=== PATIENT | female | born 1970 | race Hispanic/Latino ===

== ENCOUNTER 2019-11-09 03:05 | Observation (INO) | payer BC ==
[~2019-11-09] VITALS: Ht 157.5 cm; Wt 65.2 kg
[2019-11-09] MEDS ORDERED: METOPROLOL SUCC25 MG PO (03:22)
[2019-11-09] MEDS ORDERED: HYDROCHLOROTHIA25 MG PO (03:22)
--- NOTE | 2019-11-09 13:02 | CONS ---
[facility] [address] [place], [place] [address] Signed DATE OF CONSULTATION: 11/09/2019 REFERRING PHYSICIAN: Anitha Arreaga MD CHIEF COMPLAINT: Right upper quadrant abdominal pain. HISTORY OF PRESENT ILLNESS: Lenore is a 48-year-old female, who was at [facility] in June 2019. Her abdominal ultrasound showed cholelithiasis with sludge, but no evidence of any acute cholecystitis. However, she has been having attacks particularly last month or two at least once or twice a week. The last couple of days had been terrible. She is having significant right upper quadrant abdominal pain with nausea, vomiting, and anorexia. Her recognized this as her gallbladder disease. He had his gallbladder out laparoscopically within the last year over at [facility]. In the emergency room, she was tender in the right upper quadrant with unremarkable liver function test. However, the white count was up at 14.5. Beta-hCG is negative. Lipase negative. The ultrasound was obtained from [facility]. She was given Rocephin and Flagyl and her potassium was low because of hydrochlorothiazide. She was given some potassium IV as well. I was asked to admit her as a general surgeon on-call. Overall, she has improved with narcotic pain medication, but is still having pain in the right upper quadrant with nausea and vomiting. PAST MEDICAL HISTORY: Hypertension. PAST SURGICAL HISTORY: x2. SOCIAL HISTORY: She does not smoke or drink. She is to Justin Rivera at [phone]. They have two children. 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 She attends the [employer]. FAMILY HISTORY: Hypertension. REVIEW OF SYSTEMS: She had 10 systems reviewed with the help of her and she is doing fine except for the gallbladder issues. ALLERGIES: None. Electronically Signed By: SANDRA TONEY MD 11/09/19 0322 PATIENT NAME: LENORE ANTOINE CONSULTATION DATE OF : 74 REPORT #: [id number] PHYSICIAN: SANDRA TONEY MD PCP: OTHER PCP REPORT IS CONFIDENTIAL AND NOT TO BE RELEASED WITHOUT AUTHORIZATION [facility] [address] [place] [address] Signed MEDICATIONS: 1. Metoprolol extended release 25 mg p.o. daily. 2. Hydrochlorothiazide 25 mg p.o. daily. PHYSICAL EXAMINATION: VITAL SIGNS: Her blood pressure is 128/81, heart rate 92, respiratory rate 18, temperature is 97.3. She is 100% on room air. She is 5 feet 2 inches, 65 kg. GENERAL: Lenore is a 48-year-old female, lying supine semi-recumbent in her hospital bed. Her is in the room. She is obviously uncomfortable and nauseated and has the vomit bag in her hand. LUNGS: Clear to auscultation bilaterally. HEART: Regular rate and rhythm. ABDOMEN: Soft and flat, but she is tender in the right upper quadrant. LABORATORY DATA: Her white blood cell count is 14.5, neutrophils 87. BUN 11, creatinine 0.63. Urinalysis unremarkable. Total bilirubin 1.0, AST 16, ALT 22, alkaline phosphatase 75, albumin is 4.6, lipase 18. Beta-hCG negative. RADIOGRAPHIC STUDIES: The ultrasound from June 2019 from [facility] has been reviewed showing the cholelithiasis and sludge, but an unremarkable common bile duct. ASSESSMENT/PLAN: Lenore is a 48-year-old female, who has acute cholecystitis and cholelithiasis. She has been admitted given her IV fluids and antibiotics along with pain control. Her potassium is being corrected IV. I brought brochure today for Lenore and her . One is written in Hong Konger, one is written in Swedish. We went it through a page by page. They both read Hong Konger quite well. He helped to interpret obviously which worked out very well. She understands the location and function of the gallbladder. She understands the gallstones. She understands 20% of every one in [place] and [place] has gallstones. 20% of that group will end up having symptoms needing surgery. In that group of surgical patients, 3-7% of those patients will have stones in the main bile duct. Consequently, we like to do an intraoperative cholangiogram for our patients. This is successful 90% of the time. If she would need an ERCP, this would be done outside her institution that requires advance training. We reviewed expected intraop and postop course. Her just had her gallbladder out within the last year and he is very familiar with all of this. There is risk including, but not limited to bleeding, infection, scarring, change in contour of the skin, damage to bowel, damage to main bile duct, incisional hernias and other unforeseen comorbidities. They have expressed understanding and would like to proceed. Electronically Signed By: SANDRA TONEY MD 11/09/19 1302 PATIENT NAME: LENORE ANTOINE CONSULTATION DATE OF : 74 REPORT #: [id number] PHYSICIAN: SANDRA TONEY MD PCP: OTHER PCP REPORT IS CONFIDENTIAL AND NOT TO BE RELEASED WITHOUT AUTHORIZATION [facility] [address] [place], [place] [address] Signed Sandra Toney MD ALB/MODL /[id number] cc: Sandra Toney MD [facility] Copies: SANDRA TONEY MD ~ Electronically Signed By: SANDRA TONEY MD 11/09/19 1302 PATIENT NAME: LENORE ANTOINE CONSULTATION DATE OF : 74 REPORT #: [id number] PHYSICIAN: SANDRA TONEY MD PCP: OTHER PCP REPORT IS CONFIDENTIAL AND NOT TO BE RELEASED WITHOUT AUTHORIZATION
--- NOTE | 2019-11-09 23:03 | EKG ---
[facility] [address] [facility] [place], [place] [address] Signed Sinus tachycardia Otherwise normal ECG No previous ECGs available Confirmed by TRAVIS ARROYO DO ([id number]) on 11/09/2019 11:03:03 PM Electronically Signed By: TRAVIS ARROYO DO 11/09/19 2303 PATIENT NAME: MOIRA ANTOINE Electrocardiogram DATE OF : 74 PHYSICIAN: TRAVIS ARROYO DO REPORT #: [id number] REPORT IS CONFIDENTIAL AND NOT TO BE RELEASED WITHOUT AUTHORIZATION
--- NOTE | 2019-11-10 07:41 | OR ---
[facility] [address] [place], [place] [address] Signed DATE OF OPERATION: SURGEON: Sandra Venegas MD PREOPERATIVE DIAGNOSES: Acute on chronic cholecystitis and cholelithiasis. POSTOPERATIVE DIAGNOSES: Severe acute on chronic cholecystitis and cholelithiasis. PROCEDURES: 1. Laparoscopic cholecystectomy with intraoperative cholangiogram. 2. Subhepatic drain placement. ESTIMATED BLOOD LOSS: None. FINDINGS: Lenore had severe inflammation and edema of her gallbladder wall. The gallbladder was extremely tense and had to be opened and drained in order to grasp the gallbladder to elevate it into the right upper quadrant. She had copious amounts of sludge and stones in the gallbladder. We placed our intraoperative cholangiocatheter into the cystic duct. We could not get the contrast to flow down into the common bile duct. We did not see any obvious filling defects in her cystic duct. We did milk that back and washed it out copiously with saline with what we felt was good results. We then secured cystic duct stump with a PDS Endoloop and 2 clips were used to angie its location. INDICATIONS: Lenore is a 48-year-old speaking female, who has had quite a bit of trouble in the last few months with right upper quadrant abdominal pain, nausea and vomiting. She had been to [facility] in June 2019. Her ultrasound showed the multiple gallstones, but the common bile duct was unremarkable and the gallbladder wall was not thickened. There was no pericholecystic fluid. She had been allowed to be discharged to home. In the meantime, the episodes of right upper quadrant abdominal pain with nausea, vomiting had becoming more frequent, more severe and it was quite significant yesterday, so her brought her to our local emergency room for evaluation. She was tender in the right upper quadrant. White count was elevated, but the liver function tests were fine. Beta-hCG was negative and lipase was negative. I was asked to admit her as a general surgeon on-call overnight. She does take hydrochlorothiazide. Her potassium was low. Consequently, she received 40 mEq of potassium overnight. She also received Rocephin and Flagyl. This morning, she is Electronically Signed By: SANDRA VENEGAS MD 11/10/19 0741 PATIENT NAME: LENORE ANTOINE OPERATIVE REPORT DATE OF : 74 REPORT #: [id number] PHYSICIAN: SANDRA VENEGAS MD PCP: OTHER PCP REPORT IS CONFIDENTIAL AND NOT TO BE RELEASED WITHOUT AUTHORIZATION [facility] [address] [place] [address] Signed generally about the same, but the pain is controlled with her Dilaudid. I brought brochure that was written in Cambodian and Kenyan, so that she and her both could have those. They both read Cambodian quite well. We went through the brochure page by page and I explained to Lenore the location of function of the gallbladder, we discussed laparoscopic versus open cholecystectomy. We also reviewed the expected intraop and postop course. They understand that 20% of people in [place] and [place] have gallstones. 20% of that group ends up having symptoms and needs the gallbladder out and in that group 3-7% will have a stone in the distal common bile duct requiring an ERCP. I reviewed ERCP with them in a brochure as well. There is risk to that surgery including, but not limited to bleeding, infection, scarring, change in contour of the skin, damage to bowel, damage to main bile duct, and incisional hernias. They had expressed understanding and wished to proceed. PROCEDURE NOTE: Lenore was taken into the operating room and placed in the supine position under general endotracheal tube anesthesia. She was on preoperative Rocephin and Flagyl. She was given preoperative heparin. SCDs were utilized. She was then prepped and draped in the usual sterile fashion. We could not specifically palpate the gallbladder. All trocars were placed in usual positions under direct visualization of camera without difficulty. We were unable to grasp the gallbladder because it was quite tense. We made a small hole near the top of the gallbladder, we suctioned out copious amounts of fluid and sludge. We then grasped the gallbladder and elevated in the right upper quadrant. We dissected out the triangle of Calot, placed a clip across the cystic artery and it was divided. We inserted the cholangiocatheter into the cystic duct without any difficulty whatsoever. We were getting some saline back, so we washed out the cystic duct and then we milked it back. We felt it was clear. We then put the intraoperative cholangiogram catheter back into place. We injected some contrast and it looks like we filled up cystic duct, but none was flowing into the common duct itself. Once again, we rinsed out the cystic duct, milked that back and then we secured the cystic duct stump with a PDS Endoloop along with two clips to angie its location. We then removed the gallbladder from the gallbladder fossa very slow and carefully with the help of the cautery. The gallbladder was then placed into an EndoCatch bag. We irrigated and suctioned out the right upper quadrant until clear. We used a #10 flat Justin drain and we brought that in the abdomen, placed in the subhepatic space and brought it out through the right most lateral 5 mm subcostal trocar site. It was held in place with 2-0 nylon at the level of the skin. We used our laparoscopic suturing device to pass 0 Vicryl suture on either side of the fascia of the subxiphoid trocar site. This was tied down to close this fascia primarily. After this, all the gas was allowed to escape and all the trocars were removed. We closed the fascia of the supraumbilical trocar site with interrupted simple and [id number]-kp-[id number] 0 Vicryl sutures. We had looked down in the pelvis with the camera and we could see she has some omentum adhered to her previous lower midline incision from her C-sections. However, the uterus Electronically Signed By: SANDRA VENEGAS MD 11/10/19 0741 PATIENT NAME: LENORE ANTOINE OPERATIVE REPORT DATE OF : 74 REPORT #: [id number] PHYSICIAN: SANDRA VENEGAS MD PCP: OTHER PCP REPORT IS CONFIDENTIAL AND NOT TO BE RELEASED WITHOUT AUTHORIZATION [facility] [address] [place] [address] Signed is down deep in the pelvis. We then injected local anesthetic and all the trocar sites. Each trocar site was irrigated and suctioned out until clear. The skin and dermis of each trocar site were closed with interrupted 3-0 subcuticular Monocryl sutures. Dry gauze and tape were applied to all incisions. Lenore was awakened from anesthesia, extubated in the OR, and taken to the recovery room in stable condition. Sandra Venegas MD ALB/MODL /[id number] cc: [facility] Sandra Venegas MD Copies: SANDRA VENEGAS MD ~ Electronically Signed By: SANDRA VENEGAS MD 11/10/19 0741 PATIENT NAME: LENORE ANTOINE OPERATIVE REPORT DATE OF : 74 REPORT #: [id number] PHYSICIAN: SANDRA VENEGAS MD PCP: OTHER PCP REPORT IS CONFIDENTIAL AND NOT TO BE RELEASED WITHOUT AUTHORIZATION
[2019-11-10] MEDS ORDERED: KLOR-CON 1010 MEQ PO (14:49)
[2019-11-10] MEDS ORDERED: NORCO 5-325 TA1 EACH PO (14:50)
--- NOTE | 2019-11-11 06:46 | DS ---
[facility] [address] [place], [place] [address] Signed ADMISSION DATE: 11/09/2019 DISCHARGE DATE: 11/10/2019 FINAL DIAGNOSES: 1. Severe [id number] cholecystitis, cholelithiasis. 2. Hypokalemia associated with hydrochlorothiazide. PROCEDURE: Laparoscopic cholecystectomy with intraoperative cholangiogram. HISTORY OF PRESENT ILLNESS: Lenore is a 48-year-old speaking female, who in June 2012 was found to have cholelithiasis at [facility]. This was based on ultrasound findings. She has been having increasing episodes of right upper quadrant abdominal pain and nausea and vomiting. The last couple of days were quite miserable. Her therefore brought her to our local emergency room here at [facility] in [place], [place]. She was clearly tender in the right upper quadrant with an elevated white blood cell count of 14.5. Liver function tests were fine and negative beta hCG. We did not repeat the ultrasound. I admitted her as a general surgeon on-call. HOSPITAL COURSE: Lenore was admitted as above for IV fluids and started on Rocephin and Flagyl. We found that she is hypokalemic associated with her hydrochlorothiazide. We actually replaced it several times and it actually went down. We took her to the operating room later that same day for laparoscopic cholecystectomy with intraoperative cholangiogram. We did place a subhepatic drain. She had significant severe inflammatory changes. We could easily see contrast in the cystic duct, but it never made into the common bile duct. There were no filling defects in the cystic duct. We washed that out with saline and milked that back and we felt good about that. It was secured with a PDS Endoloop and 2 clips to angie its location. We kept her overnight. This morning, she has very thin minimal serosanguineous fluid in her drain. We left her on Rocephin and Flagyl overnight. Her temperature and heart rate have been coming down. Her white count came down nicely from 14.5 down to 9.8. Liver function tests are still unremarkable. Potassium still low at 2.8. She has already received some potassium this morning and we are going to write for potassium 20 mEq p.o. b.i.d. for 2 weeks at discharge. On exam today, her abdomen is quite benign. All the pain has gone. All incisions are well apposed. There are no local signs or symptoms of infection. The drain site is quite unremarkable. DISCHARGE PLANS AND MEDICATIONS: Electronically Signed By: SANDRA VENEGAS MD 11/11/19 0646 PATIENT NAME: LENORE ANTOINE DISCHARGE SUMMARY DATE OF : 74 REPORT #: [id number] PHYSICIAN: SANDRA VENEGAS MD PCP: OTHER PCP REPORT IS CONFIDENTIAL AND NOT TO BE RELEASED WITHOUT AUTHORIZATION [address] [address] Signed Lenore is able to communicate through her . Who is bilingual and does quite well. I brought brochures over written in Tongan and one written in Armenian with respect to the gallbladder. We went through that yesterday and we reviewed it once again today. We also reviewed the intraoperative photographs. I think they understand quite clearly. Her had his gallbladder out within the last year or 2 in a similar fashion. At this point, we are going to allow her to be discharged to home with followup my office in 5 to 7 days. She will take the drain home with her and record the drain output each day. We will remove that in the office. All incisions to be left open to air. She will start on a full liquid diet and advance as tolerated. We will give her potassium chloride 20 mEq one p.o. b.i.d. for 2 weeks. We are going to ask her to follow up with the [facility] in 3 to 4 weeks with respect to the hypokalemia associated with the hydrochlorothiazide. She is also written for [place] 5/325 one tablet p.o. q.6 hours p.r.n. for severe pain. Dispensed 25 tablets with no refills. She can also use Tylenol, ibuprofen, or Aleve yymp-ors-lyounzo. She is more than welcome to resume the metoprolol and hydrochlorothiazide as usual. I have asked her not to do any heavy pushing, pulling, or lifting over about 25 pounds. 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 She does not drive. I reviewed all this with Lenore, her , and our charge nurse, Diana. Lenore and her have expressed understanding and agreed above plan. Sandra Venegas MD ALB/MODL /[id number] cc: Sandra Venegas MD [facility] Copies: SANDRA VENEGAS MD ~ Electronically Signed By: SANDRA VENEGAS MD 11/11/19 0646 PATIENT NAME: LENORE ANTOINE DISCHARGE SUMMARY DATE OF : 74 REPORT #: [id number] PHYSICIAN: SANDRA VENEGAS MD PCP: OTHER PCP REPORT IS CONFIDENTIAL AND NOT TO BE RELEASED WITHOUT AUTHORIZATION
--- NOTE | 2019-11-13 09:28 | PATH ---
[facility] [address] [place], [place] [address] Signed SPECIMEN(S): A GALLBLADDER AND STONES SPECIMEN SOURCE: A. GALLBLADDER AND STONES CLINICAL HISTORY: Cholecystitis, cholelithiasis. FINAL PATHOLOGIC DIAGNOSIS: Gallbladder and stones, cholecystectomy: - Cholelithiasis and acute cholecystitis with focal reactive atypia. DDF:emb:C2NR MICROSCOPIC EXAMINATION: Histologic sections of all submitted blocks are examined by light microscopy. These findings, together with the gross examination, support the pathologic diagnosis. GROSS DESCRIPTION: The specimen, labeled "EO, A.," and designated on the requisition "gallbladder and stones," is received in formalin and consists of Specimen: Previously opened and disrupted gallbladder. Dimensions: 8.5 x 4.5 x 2.4 cm. Serosa: Smooth and violaceous with 0.3 x 0.2 cm disruption. Cystic Duct: Unobstructed. Calculi: Multiple yellow faceted stones measuring 4.0 x 4.0 x 1.4 cm in aggregate. Mucosa: Irregular green-brown with white flecking. Wall thickness: Up to 0.6 cm. Lymph node: No pericystic lymph nodes are grossly identified. Additional: None. Process Tech sections are submitted in cassette (A1). AT (under the direct supervision of a pathologist) Following initial examination of HE slides, Dr. Shearer requests additional tissue. Additional volunteer patient representative sections are submitted in cassette A2. AT The Gross Description was prepared using a voice recognition system. The report was reviewed for accuracy; however, sound-alike word errors, addition and/or deletions may occur. If there is any PATIENT NAME: MOIRA ANTOINE PATHOLOGY DATE OF : 74 REPORT #: [id number] PHYSICIAN: [facility] PATHOLOG[facility] PCP: OTHER PCP REPORT IS CONFIDENTIAL AND NOT TO BE RELEASED WITHOUT AUTHORIZATION [facility] [address] [place], [place] [address] Signed question about this report, please contact Client Services. PERFORMING LABORATORY: The technical component was performed by [email or web address] [address] (Commercial Agent: Claire Mallory MD; CLIA# [id number]). Professional interpretation was performed by [email or web address] [facility], [address] [address] (CLIA# [id number]). Diagnostician: Charles Shearer DO Pathologist Electronically Signed 11/13/2019 Copies: ~ PATIENT NAME: MOIRA ANTOINE PATHOLOGY DATE OF : 74 REPORT #: [id number] PHYSICIAN: [facility]ARREN PATHOLOGY PCP: OTHER PCP REPORT IS CONFIDENTIAL AND NOT TO BE RELEASED WITHOUT AUTHORIZATION
== END 2019-11-10 15:20 | disposition home or self-care (01) ==
LOC: ED 03:05 → MS 03:07
PROVIDERS: ADMIT Colon & Rectal Surgery
PROC: BF101ZZ Fluoroscopy of Bile Ducts using Low Osmolar Contrast (ICD-10-PCS; 2019-11-09)
PROC: 0FT44ZZ Resection of Gallbladder, Percutaneous Endoscopic Approach (ICD-10-PCS; principal; 2019-11-09 10:36)
DX: K80.12 Calculus of gallbladder with acute and chronic cholecystitis without obstruction (principal); I10 Essential (primary) hypertension; E87.6 Hypokalemia; T50.2X5A Adverse effect of carbonic-anhydrase inhibitors, benzothiadiazides and other diuretics, initial encounter; Z79.899 Other long term (current) drug therapy
CPT/HCPCS: 00790; 36415; 74300; 80048; 80053; 81001; 83690; 83735; 84100; 84703; 85025; 93005; 93010; 94762; 96361; 96372; 96374; 96375; 96376; 99285-25; C9113; G0378; J0330; J0696; J1170; J1644; J1885; J2001; J2250; J2370; J2405; J2550; J2704; J3475; J3480; J7030; J7060; J7121; Q9967; U0002